=== PATIENT | female | born 1975 | race Caucasian/White ===

== ENCOUNTER → 2017-04-14 | Outpatient (CLI) | payer OTHER | LOC: FIMAGING 18:08 | PROVIDERS: ATTEND Family Medicine | DX: M47.892 Other spondylosis, cervical region (principal); M50.30 Other cervical disc degeneration, unspecified cervical region; M25.512 Pain in left shoulder ==

== ENCOUNTER → 2018-12-22 | Outpatient (CLI) | payer BC | LOC: FIMAGING 13:42 | PROVIDERS: ATTEND Family Medicine | DX: M50.31 Other cervical disc degeneration, high cervical region (principal); M48.02 Spinal stenosis, cervical region; M46.92 Unspecified inflammatory spondylopathy, cervical region; I65.21 Occlusion and stenosis of right carotid artery ==

== ENCOUNTER → 2018-12-23 | Outpatient (CLI) | payer BC | LOC: EMCIMAGING 09:29 | PROVIDERS: ATTEND Family Medicine | DX: M48.02 Spinal stenosis, cervical region (principal); M99.71 Connective tissue and disc stenosis of intervertebral foramina of cervical region; M50.31 Other cervical disc degeneration, high cervical region; M50.321 Other cervical disc degeneration at C4-C5 level; M50.322 Other cervical disc degeneration at C5-C6 level; M12.88 Other specific arthropathies, not elsewhere classified, other specified site; I65.21 Occlusion and stenosis of right carotid artery | CPT/HCPCS: 70544-PN; 70548-PN; 72141-PN ==

== ENCOUNTER → 2019-02-03 | Outpatient (CLI) | payer BC | LOC: FIMAGING 10:51 ==